=== PATIENT | male | born 1955 | race Caucasian/White ===

== ENCOUNTER 2018-08-22 19:58 | Emergency (ER) | payer MEDICARE, MEDICAID ==
[~2018-08-22] VITALS: Ht 182.9 cm; Wt 90.7 kg
[2018-08-22 20:14] VITALS: BP 123/74
[2018-08-22] MEDS ORDERED: HYDROCODONE/APAP 5/325MG 1 EACH TABLET ONE (20:43)
[2018-08-22] MEDS ORDERED: ONDANSETRON 4 MG TAB.RAPDIS ONE (20:43)
[2018-08-22] MEDS ORDERED: HYDROCODONE/APAP 5/325MG 1 EACH TABLET PO ONE (21:00)
[2018-08-22] MEDS ORDERED: ONDANSETRON 4 MG TAB.RAPDIS PO ONE (21:00)
== END 2018-08-22 22:09 | disposition home or self-care (01) ==
LOC: ER 20:02
DX: S52.091A Other fracture of upper end of right ulna, initial encounter for closed fracture (principal); I10 Essential (primary) hypertension; K21.9 Gastro-esophageal reflux disease without esophagitis; F17.200 Nicotine dependence, unspecified, uncomplicated; Z60.2 Problems related to living alone; W01.0XXA Fall on same level from slipping, tripping and stumbling without subsequent striking against object, initial encounter; Y93.89 Activity, other specified; Y92.89 Other specified places as the place of occurrence of the external cause; Y99.8 Other external cause status
CPT/HCPCS: 29105; 73070; 99283; Q0162

== ENCOUNTER 2020-02-10 14:36 | Emergency (ER) | payer MEDICARE, OTHER ==
[~2020-02-10] VITALS: Ht 180.3 cm; Wt 83.9 kg
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
[2020-02-10] MEDS ORDERED: ACETAMINOPHEN ES 500 MG TABLET ONE (15:20)
[2020-02-10] MEDS ORDERED: ONDANSETRON 4 MG TAB.RAPDIS ONE (15:20)
--- NOTE | 2020-02-10 15:25 | NUR ---
PATIENT TAKEN TO CT.
[2020-02-10] MEDS ORDERED: ACETAMINOPHEN ES 500 MG TABLET PO ONE (15:30)
[2020-02-10] MEDS ORDERED: ONDANSETRON 4 MG TAB.RAPDIS SL ONE (15:30)
[2020-02-10 17:06] VITALS: BP 134/88
--- NOTE | 2020-02-10 17:06 | NUR ---
Patient ambulatory, explained dc isntructions to . Patient discharged to home in stable condition. Written and verbal after care instructions given. Patient verbalizes understanding of instruction.
== END 2020-02-10 17:07 | disposition home or self-care (01) ==
LOC: ER 14:37
DX: S50.01XA Contusion of right elbow, initial encounter (principal); M54.5 Low back pain; R51.9 Headache, unspecified; I10 Essential (primary) hypertension; K21.9 Gastro-esophageal reflux disease without esophagitis; Z60.2 Problems related to living alone; W18.09XA Striking against other object with subsequent fall, initial encounter; Y93.89 Activity, other specified; Y92.89 Other specified places as the place of occurrence of the external cause; Y99.8 Other external cause status
CPT/HCPCS: 70450; 72110; 72125; 73080; 99285; Q0162